=== PATIENT | male | born 1980 | race Caucasian/White ===

== ENCOUNTER 2019-01-14 11:31 | Emergency (ER) | payer MEDICARE, MEDICAID ==
[2019-01-14] MEDS ORDERED: SEROQUEL200 MG PO (11:40)
[2019-01-14] MEDS ORDERED: TORADOL10 MG PO (13:18)
[2019-01-14] MEDS ORDERED: ROBAXIN500 MG PO (13:18)
== END 2019-01-14 13:40 | disposition home or self-care (01) ==
LOC: D.ER 11:31
DX: S43.401A Unspecified sprain of right shoulder joint, initial encounter (principal); W18.30XA Fall on same level, unspecified, initial encounter; Y93.89 Activity, other specified

== ENCOUNTER 2020-07-16 08:36 | Emergency (ER) | payer MEDICARE, MEDICAID ==
[~2020-07-16] VITALS: Ht 190.5 cm; Wt 118.2 kg
[~2020-07-16 08:36] MED LIST: ROBAXIN500 MG PO; SEROQUEL200 MG PO; TORADOL10 MG PO
[2020-07-16 08:41] VITALS: BP 137/87; Ht 190.5 cm; Wt 118.2 kg
[2020-07-16] MEDS ORDERED: COLACE100 MG PO (10:19)
== END 2020-07-16 10:27 | disposition home or self-care (01) ==
LOC: D.ER 08:36
DX: T18.5XXA Foreign body in anus and rectum, initial encounter (principal)